=== PATIENT | male | born 1985 | race African-American/Black ===

== ENCOUNTER 2017-08-29 13:01 | Inpatient (IN) | payer SELFPAY ==
[~2017-08-29] VITALS: Ht 172.7 cm; Wt 89.4 kg
[2017-08-29] MEDS ORDERED: ASPIRIN 81MG TABLET PO STA (13:08)
[2017-08-29] MEDS ORDERED: SODIUM CHLORIDE 0.9% 1000ML BAG (SEPSIS BOLUS) IV ONE (13:15)
[2017-08-29] MEDS ORDERED: DILTIAZEM HCL 5MG/ML 5ML VIAL IV ONE ×3 (13:15→15:15)
[2017-08-29 13:35] LABS: BASOPHILS % 0.5 % (0.0-2.0); EOSINOPHILS % 5.4 % (0.0-5.0); HEMATOCRIT. 39.5 % (42.0-52.0); HEMOGLOBIN. 13.2 g/dL (14.0-18.0); LYMPHOCYTES % 32.2 % (20.0-50.0); MEAN CORPUSCULAR VOLUME 95.7 fL (80.0-94.0); MONOCYTES % 5.8 % (2.0-8.0); NEUTROPHILS % 56.1 % (40.0-76.0); PLATELET 313 x1000/uL (130-400); RED BLOOD CELL COUNT 4.13 mill/uL (4.7-6.1); RED CELL DISTRIBUTION WIDTH 13.4 % (11.6-14.6)
[2017-08-29 13:42] LABS: PARTIAL THROMBOPLASTIN TIME 25.9 sec (23.4-31.0); PROTHROMBIN TIME 10.3 sec (9.4-11.6)
[2017-08-29 13:51] LABS: CARBON DIOXIDE 27 mEq/L (21-32); CHLORIDE 110 mEq/L (98-107); TROPONIN I < 0.02 ng/mL (0.00-0.04)
[2017-08-29] MEDS ORDERED: DILTIAZEM HCL 60MG TABLET PO ONE (16:00)
[2017-08-29] MEDS ORDERED: ENOXAPARIN 80MG/0.8ML SYR SUBCUT ONE (16:00)
[2017-08-29] MEDS ORDERED: ONDANSETRON HCL 4MG/2ML VIAL IV PRN (17:30)
[2017-08-29] MEDS ORDERED: CLONIDINE 0.1MG TABLET PO PRN (17:30)
[2017-08-29] MEDS ORDERED: MAGNESIUM/ALUMINUM HYDROXIDE/SIMETHICONE 30ML UDC PO PRN (17:30)
[2017-08-29] MEDS ORDERED: DIPHENHYDRAMINE 50MG/ML VIAL IV PRN (17:30)
[2017-08-29] MEDS ORDERED: GUAIFENESIN 200MG/10ML SUGAR FREE UDC PO PRN (17:30)
[2017-08-29] MEDS ORDERED: NITROGLYCERIN 0.4MG TABLET SL SL PRN (17:30)
[2017-08-29] MEDS ORDERED: LORAZEPAM 2MG/ML CPJ IV PRN (17:30)
[2017-08-29] MEDS ORDERED: ACETAMINOPHEN 325MG TABLET PO PRN (17:30)
[2017-08-29] MEDS ORDERED: IPRATROPIUM/ALBUTEROL 0.5-3(2.5)MG/3ML NEB INH PRN (17:30)
[2017-08-29] MEDS ORDERED: DOCUSATE SODIUM 100MG CAPSULE PO PRN (17:30)
[2017-08-29] MEDS ORDERED: IOHEXOL-350 100 ML BOTTLE ONE (17:36)
[2017-08-29 17:56] LABS: ETHANOL BLOOD < 10 mg/dL
[2017-08-29 18:00] LABS: HDL CHOLESTEROL 43 mg/dL (40-59); LDL CHOLESTEROL 144 mg/dL (5-100)
[2017-08-29] MEDS ORDERED: KETOROLAC 15MG/ML VIAL IV PRN (18:30)
[2017-08-29 18:48] LABS: CLARITY URINE CLEAR (CLEAR); COLOR URINE YELLOW (YELLOW); GLUCOSE URINE NEGATIVE (NEGATIVE); KETONES URINE NEGATIVE (NEGATIVE); LEUKOCYTE ESTERASE URINE NEGATIVE (NEGATIVE); NITRITE URINE NEGATIVE (NEGATIVE); OCCULT BLOOD URINE NEGATIVE (NEGATIVE); PH URINE 7.5 (4.5-8.0); PROTEIN URINE NEGATIVE (NEGATIVE); SPECIFIC GRAVITY URINE 1.017 (1.005-1.030); UROBILINOGEN URINE 0.2 E.U./dL (0.2-1.0)
[2017-08-29 19:06] LABS: *AMPHETAMINES SCREEN URINE NEGATIVE (NEGATIVE); *BARBITURATES SCREEN URINE NEGATIVE (NEGATIVE); *BENZODIAZEPINES SCREEN URINE NEGATIVE (NEGATIVE); *COCAINE SCREEN URINE NEGATIVE (NEGATIVE); CANNABINOID URINE SCREEN PRESUMTIVE POSITIVE (NEGATIVE); METHADONE URINE SCREEN NEGATIVE (NEGATIVE); OPIATES URINE SCREEN NEGATIVE (NEGATIVE); PHENCYCLIDINE URINE SCREEN NEGATIVE (NEGATIVE)
[2017-08-29 19:47] VITALS: BP 111/59
[2017-08-29] MEDS ORDERED: NA PHOS,M-B/NA PHOS,DI-BA ENEMA 118ML PR PRN (20:00)
[2017-08-29] MEDS ORDERED: ENOXAPARIN 40MG/0.4ML SYR SUBCUT SCH (20:00)
[2017-08-29] MEDS ORDERED: POTASSIUM CHLORIDE 20MEQ TABLET SR PO NR (21:00)
[2017-08-29] MEDS ORDERED: ZOLPIDEM TARTRATE 5MG TABLET PO PRN (21:00)
[2017-08-29] MEDS: DILTIAZEM HCL 60MG TABLET PO SCH ×2 (21:08→23:53)
[2017-08-29] MEDS: FAMOTIDINE 20MG/2ML VIAL IV SCH (21:08)
[2017-08-30 00:35] LABS: CREATINE KINASE MB FRACTION 1.2 ng/mL (0.5-3.6); TROPONIN I 0.04 ng/mL (0.00-0.04)
[2017-08-30 00:40] VITALS: BP 110/78
[2017-08-30 04:00] VITALS: BP 122/69
[2017-08-30] MEDS: DILTIAZEM HCL 60MG TABLET PO SCH ×2 (05:15→13:18)
[2017-08-30 08:00] VITALS: BP 120/80
[2017-08-30 08:30] LABS: CREATINE KINASE 179 IU/L (39-308); CREATINE KINASE MB FRACTION 0.9 ng/mL (0.5-3.6); TROPONIN I < 0.02 ng/mL (0.00-0.04)
[2017-08-30 08:45] LABS: FOLIC ACID (FOLATE) SERUM 7.3 ng/mL (>5.38)
[2017-08-30] MEDS ORDERED: ASPIRIN 325MG EC TABLET PO SCH (09:00)
[2017-08-30] MEDS: FAMOTIDINE 20MG/2ML VIAL IV SCH (09:23)
[2017-08-30 13:45] VITALS: BP 116/70
[2017-08-30] MEDS ORDERED: ATORVASTATIN CALCIUM 10MG TABLET PO SCH (21:00)
== END 2017-08-30 14:45 | disposition home or self-care (01) | DRG 201 ==
LOC: ER 13:15 → CANRESERV 15:34 → ENRESERV 15:34 → 6WST 15:55 → EDBEDREQ 15:57 → EDBEDREQTM 15:57
PROVIDERS: ADMIT Internal Medicine; ATTEND Internal Medicine
DX: I48.91 Unspecified atrial fibrillation (principal); I11.9 Hypertensive heart disease without heart failure; I47.1 Supraventricular tachycardia; F17.210 Nicotine dependence, cigarettes, uncomplicated; F12.10 Cannabis abuse, uncomplicated; E78.5 Hyperlipidemia, unspecified; D64.9 Anemia, unspecified; K44.9 Diaphragmatic hernia without obstruction or gangrene; J45.909 Unspecified asthma, uncomplicated; L30.9 Dermatitis, unspecified; Z79.899 Other long term (current) drug therapy; Z79.82 Long term (current) use of aspirin
CPT/HCPCS: 36415; 71010; 71275; 80053; 80061; 80305; 81003; 82550; 82553; 82607; 82746; 83036; 83540; 83550; 83735; 84443; 84484; 85025; 85379; 85610; 85730; 93005; 93306; 93970; 99291; G0482; J1650; J3490; J7030; Q9967

== ENCOUNTER 2019-10-12 13:56 | Emergency (ER) | payer OTHER ==
[~2019-10-12] VITALS: Ht 175.3 cm; Wt 95.0 kg
[2019-10-12 14:01] VITALS: BP 118/76
== END 2019-10-12 19:51 | disposition left against medical advice (07) ==
LOC: ER 13:56
DX: R42 Dizziness and giddiness (principal); R51 Headache; Z53.21 Procedure and treatment not carried out due to patient leaving prior to being seen by health care provider

== ENCOUNTER 2019-10-13 09:05 | Emergency (ER) | payer OTHER ==
[~2019-10-13] VITALS: Ht 175.3 cm; Wt 82.0 kg
[2019-10-13 14:40] LABS: BASOPHILS % 0.6 % (0.0-2.0); HEMATOCRIT. 45.3 % (42.0-52.0); HEMOGLOBIN. 15.1 g/dL (14.0-18.0); LYMPHOCYTES % 15.7 % (20.0-50.0); MEAN CORPUSCULAR HEMOGLOBIN 33.1 pg (28.0-32.0); MEAN CORPUSCULAR VOLUME 99.2 fL (80.0-94.0); NEUTROPHILS % 75.7 % (40.0-76.0); PLATELET 304 x1000/uL (130-400); RED BLOOD CELL COUNT 4.57 mill/uL (4.7-6.1)
[2019-10-13 14:45] LABS: CHLORIDE 105 mEq/L (98-107); PROTHROMBIN TIME 10.2 sec (9.6-11.0)
[2019-10-13 17:08] VITALS: BP 136/80
== END 2019-10-13 17:10 | disposition home or self-care (01) ==
LOC: ER 09:05
DX: R42 Dizziness and giddiness (principal); R03.0 Elevated blood-pressure reading, without diagnosis of hypertension; I48.91 Unspecified atrial fibrillation; J45.909 Unspecified asthma, uncomplicated
CPT/HCPCS: 36415; 71045; 80053; 84484; 85025; 93005; 99284